=== PATIENT | male | born 1970 | race Caucasian/White ===

== ENCOUNTER 2020-05-24 22:46 | Emergency (ER) | payer MEDICAID ==
[~2020-05-24] VITALS: Ht 185.4 cm; Wt 77.3 kg
[2020-05-24 22:50] VITALS: BP 131/83
[2020-05-24] MEDS ORDERED: ketorolac tromethamine 15mg/ml inj. IM ONE (23:25)
== END 2020-05-24 23:40 | disposition home or self-care (01) ==
LOC: ER 22:47
DX: M25.512 Pain in left shoulder (principal)
CPT/HCPCS: 29105; 73030; 96372; 99283; J1885

== ENCOUNTER 2021-04-12 12:08 | Emergency (ER) | payer MEDICAID ==
[~2021-04-12] VITALS: Ht 182.9 cm; Wt 77.3 kg
[2021-04-12 12:13] VITALS: BP 124/81
[2021-04-12] MEDS ORDERED: ketorolac tromethamine 15mg/ml inj. IM ONE (15:10)
[2021-04-12 15:29] LABS: BASOPHILS # (AUTO) 0.1 X10'3 (0-0.2); BASOPHILS % (AUTO) 1.2 % (0-1); EOSINOPHILS # (AUTO) 0.2 X10'3 (0-0.9); EOSINOPHILS % (AUTO) 2.3 % (0-6); HEMATOCRIT 43.3 % (42.0-52.0); HEMOGLOBIN 14.8 g/dl (14.0-17.9); LYMPHOCYTES # (AUTO) 1.7 X10'3 (1.1-4.8); LYMPHOCYTES % (AUTO) 23.2 % (21-51); MEAN CORPUSCULAR HGB CONC 34.3 g/dL (33.0-36.5); MEAN CORPUSCULAR VOLUME 93.2 FL (78-98); MONOCYTES # (AUTO) 0.5 X10'3 (0-0.9); NEUTROPHILS # (AUTO) 4.9 X10'3 (1.8-7.7); NEUTROPHILS % (AUTO) 66.3 % (42-75); PLATELET COUNT 278 X10'3 (140-440); RED BLOOD COUNT 4.64 X10'6 (4.70-6.10); WHITE BLOOD COUNT 7.4 X10'3 (4.5-11.0)
[2021-04-12 15:36] LABS: PARTIAL THROMBOPLASTIN TIME 28 SECONDS (22-32)
[2021-04-12 15:39] LABS: ALANINE AMINOTRANSFERASE 19 U/L (12-78); ALBUMIN 4.5 G/DL (3.4-5.0); ALBUMIN/GLOBULIN RATIO 1.3 (1.1-1.5); ALKALINE PHOSPHATASE 69 IU/L (46-116); ANION GAP 8 (8-16); ASPARTATE AMINO TRANSFERASE 28 U/L (10-37); BILIRUBIN,TOTAL 0.5 MG/DL (0.1-1.0); BLOOD UREA NITROGEN 23 MG/DL (7-18); BUN/CREATININE RATIO 23.5 (5.4-32.0); C-REACTIVE PROTEIN 0.12 MG/DL (0.0-0.5); CHLORIDE 104 MMOL/L (99-107); CREATININE 0.98 MG/DL (0.60-1.10); GLUCOSE 84 MG/DL (70-104); POTASSIUM 4.1 MMOL/L (3.5-5.1); SODIUM 142 MMOL/L (135-145); eGFR 81 ML/MIN
[2021-04-12] MEDS ORDERED: CEPH-585 PO (16:36)
== END 2021-04-12 16:47 | disposition left against medical advice (07) ==
LOC: ER 12:09
DX: L03.114 Cellulitis of left upper limb (principal); M79.642 Pain in left hand; Z59.0 Homelessness; Z79.2 Long term (current) use of antibiotics
CPT/HCPCS: 36415; 73110; 80053; 85025; 85610; 85651; 85730; 86140; 99284